=== PATIENT | male | born 1945 | race Caucasian/White ===

== ENCOUNTER → 2016-11-28 | Day surgery (SDC) | payer MEDICARE ==
[~2016-11-28] VITALS: Ht 170.2 cm; Wt 79.0 kg
[~2016-11-28] MED LIST: 0.9% Sodium Chloride 1,000 ML IV PRN; ASPI-973 PO; Lactated Ringer's 1,000 ML IV ONE; METF500T4 PO; NOMED; SIMV40TA5 PO; Sodium Chloride LOK Flush 10 mL Syringe IV PRN; fentaNYL-PF 50 mCg/mL 2 mL Inj IVPUSH PRN
[2016-11-28 13:49] VITALS: BP 135/83; PULSE 61; RESP 16; O2SAT 97
[2016-11-28 14:27] VITALS: BP 102/68; PULSE 59; RESP 12; O2SAT 96
--- NOTE | 2016-11-29 01:20 | ENDO ---
[address] [address] ENDOSCOPY PROCEDURE PATIENT: LEE BOYD : 1945 MR#: [id number] ADMIT: 11/28/2016 JOB ID: [id number] PRIMARY PROVIDER: Wilder Hurtado MD PROCEDURE: Colonoscopy with cold snare polypectomy. INDICATIONS: A 71-year-old male with a personal history of colon polyps, returning for surveillance. EQUIPMENT: MadeiraMadeira-[id number]. SEDATION: 4 mg Versed and 100 mcg fentanyl. COMPLICATIONS: None identified. BOWEL PREPARATION: Fair, adequate exam. PROCEDURE INFORMATION: After the risks and benefits were explained, written and verbal informed consent was obtained. The patient was brought into the endoscopy suite and placed into the left lateral decubitus position. Sedation was achieved as above. Digital rectal examination was accomplished. No significant pathology appreciated. The scope was introduced into the rectum and advanced under direct visualization to the cecum as identified by the appendiceal orifice and ileocecal valve. The scope was slowly withdrawn to carefully examine the mucosa for any defects or lesions. Retroflexed views were accomplished in the rectum. The colon was decompressed, the scope removed from the patient who tolerated the procedure well. FINDINGS: There was a small 5 mm polyp in the descending region removed with cold snare. Otherwise, no significant polyps, mass lesions or inflammatory features identified throughout including retroflexed views from within the rectum. ENDOSCOPIC DIAGNOSES: 1. Colon polyp. 2. Mild hemorrhoids. RECOMMENDATIONS: 1. Await histopathology. 2. Repeat colonoscopy in five years.
--- NOTE | 2016-11-30 17:56 | PATH ---
SURGICAL PATHOLOGY Attending Physician:Ash Paredes CASE STATUS: Signed Out PATIENT NAME: LEE BOYD PID: [id number] : 1945 DATE COLLECTED:11/28/2016 00:00 SPECIMEN: Colon, Polyp CLINICAL HISTORY: 1). COLON POLYP X1 FINAL DIAGNOSIS: 1.COLON POLYP, BIOPSY: TUBULAR ADENOMA. ICD10 D12.4 GROSS DESCRIPTION: The specimen is received in one formalin filled container labeled with the patient's name, sublabeled "colon polyp" and consists of a 0.3 x 0.3 x 0.3 CM portion of tissue which is entirely submitted in one cassette. 11/29/2016DC MICRO DESCRIPTION: See diagnosis. ICD-9 CODES: CPT CODES: 1: 57024 Electronically Signed Out Jose Borjas MD, Ph.D. [facility] Pathology [facility], [place] [address] Technical component performed at [facility], [address] [place] [address] Ave[address], [place], [address]
== END | disposition home or self-care (01) ==
LOC: END 00:27
PROVIDERS: ATTEND Internal Medicine Gastroenterology
DX: Z12.11 Encounter for screening for malignant neoplasm of colon (principal); D12.4 Benign neoplasm of descending colon; K64.8 Other hemorrhoids; E11.9 Type 2 diabetes mellitus without complications; E78.5 Hyperlipidemia, unspecified; I10 Essential (primary) hypertension; F52.21 Male erectile disorder; Z79.82 Long term (current) use of aspirin; Z79.899 Other long term (current) drug therapy; Z87.891 Personal history of nicotine dependence
CPT/HCPCS: 45385; 88305; 99153; G0500; J2250; J3010; J7030